=== PATIENT | male | born 1960 | race Caucasian/White ===

== ENCOUNTER 2016-12-03 10:24 | Inpatient (IN) | payer OTHER ==
[2016-12-03] VITALS (14 sets, daily range): BP systolic 109–130; BP diastolic 63–73
[~2016-12-03] VITALS: Ht 170.2 cm; Wt 66.1 kg
[2016-12-03 08:43] LABS: FASTING STATUS NONFASTING
[2016-12-03 09:41] LABS: EOSINOPHIL (%) 1.2 % (0-5); EOSINOPHIL COUNT 0.1 K/uL (0-0.3); IMMATURE GRANULOCYTE (%) 1.5 % (0.0-0.7); IMMATURE GRANULOCYTE COUNT 0.1 K/uL; INSTRUMENT ABS NEUTROPHIL CT 3.9 K/uL; MCH 17.2 PG (29.0-34.0); MCHC 25.7 G/DL (30.0-36.0); MEAN PLAT.VOLUME 8.6 uM^3 (9.0-12.4); MONOCYTE (%) 9.2 % (3-12); MONOCYTE COUNT 0.6 K/uL (0-0.8); NEUTROPHIL (%) 58.3 % (45-76); NEUTROPHIL COUNT 3.9 K/uL (1.8-6.4); PLATELET COUNT 681 K/uL (156-360); RBC DIS.WIDTH-CV 21.2 % (11.8-14.6); RED BLOOD COUNT 2.09 M/uL (4.00-5.50); WHITE BLOOD COUNT 6.7 K/uL (4.1-10.2)
[2016-12-03 09:44] LABS: ALKALINE PHOSPHATASE 74 IU/L (3-129); ANION GAP 12 MEQ/L (2-14); CHLORIDE 103 MEQ/L (99-109); GFR ESTIMATE (CALCULATED) 48 mL/min/; GLUCOSE 101 mg/dL (70-99); POTASSIUM 4.4 MEQ/L (3.7-5.4); SAMPLE HEMOLYSIS CHECK 0; SAMPLE ICTERIC CHECK 0; SAMPLE LIPEMIA CHECK 0; SODIUM 135 MEQ/L (136-147); TOTAL BILIRUBIN 0.5 MG/DL (0.0-1.0); UREA NITROGEN (BUN) 17 mg/dL (9-23)
[2016-12-04] VITALS (14 sets, daily range): BP systolic 105–124; BP diastolic 55–74
[2016-12-04 06:13] LABS: HEMATOCRIT 20.5 % (38.0-50.0); MCHC 29.3 G/DL (30.0-36.0); MEAN PLAT.VOLUME 8.8 uM^3 (9.0-12.4); NRBC (%) 0.5 /100 WBC (0-0); RBC DIS.WIDTH-CV 21.6 % (11.8-14.6); RBC DIS.WIDTH-SD 60.1 % (39-53); WHITE BLOOD COUNT 6.1 K/uL (4.1-10.2)
[2016-12-04 06:17] LABS: MCH 22.4 PG (29.0-34.0); MCV 76.5 FL (86-99); PLATELET COUNT 475 K/uL (156-360); RED BLOOD COUNT 2.68 M/uL (4.00-5.50)
[2016-12-04 06:43] LABS: ANION GAP 9 MEQ/L (2-14); CHLORIDE 104 MEQ/L (99-109); GFR ESTIMATE (CALCULATED) 45 mL/min/; GLOBULINS 6.5 G/DL (2.3-3.5); GLUCOSE 88 mg/dL (70-99); SAMPLE HEMOLYSIS CHECK 0; SAMPLE ICTERIC CHECK 0; SAMPLE LIPEMIA CHECK 0; SODIUM 134 MEQ/L (136-147); UREA NITROGEN (BUN) 16 mg/dL (9-23)
[2016-12-04 14:06] LABS: ALBUMIN 3.41 G/DL (3.6-4.9); ALBUMIN PERCENT 36.7 %; ALPHA-1 GLOBULIN 0.35 G/DL (0.15-0.40); ALPHA-1 PERCENT 3.8 %; ALPHA-2 GLOBULIN 1.02 G/DL (0.45-0.85); BETA PERCENT 6.8 %; GAMMA PERCENT 41.7 %
[2016-12-04 16:35] LABS: HEMATOCRIT 27.5 % (38.0-50.0); MCH 24.1 PG (29.0-34.0); MCHC 30.5 G/DL (30.0-36.0); MCV 78.8 FL (86-99); MEAN PLAT.VOLUME 8.6 uM^3 (9.0-12.4); NRBC (%) 0.3 /100 WBC (0-0); PLATELET COUNT 470 K/uL (156-360); RBC DIS.WIDTH-CV 22.2 % (11.8-14.6); RBC DIS.WIDTH-SD 63.5 % (39-53); RED BLOOD COUNT 3.49 M/uL (4.00-5.50); WHITE BLOOD COUNT 6.4 K/uL (4.1-10.2)
[2016-12-04 16:36] LABS: HEMATOCRIT 27.5 % (38.0-50.0); MCV 78.8 FL (86-99)
[2016-12-04 16:53] LABS: INTER. NORMALIZED RATIO 1.2; PROTHROMBIN TIME 11.8 (9.2-11.2)
[2016-12-04 21:52] LABS: HEMATOCRIT 26.7 % (38.0-50.0); MCH 24.2 PG (29.0-34.0); MCHC 31.1 G/DL (30.0-36.0); MCV 77.8 FL (86-99); MEAN PLAT.VOLUME 8.7 uM^3 (9.0-12.4); PLATELET COUNT 469 K/uL (156-360); RBC DIS.WIDTH-CV 22.4 % (11.8-14.6); RBC DIS.WIDTH-SD 63.3 % (39-53); RED BLOOD COUNT 3.43 M/uL (4.00-5.50); WHITE BLOOD COUNT 6.1 K/uL (4.1-10.2)
[2016-12-05] VITALS (13 sets, daily range): BP systolic 98–142; BP diastolic 48–77
[2016-12-05 07:11] LABS: HEMATOCRIT 26.2 % (38.0-50.0); MCH 23.8 PG (29.0-34.0); MCHC 30.2 G/DL (30.0-36.0); MCV 78.9 FL (86-99); PLATELET COUNT 502 K/uL (156-360); RBC DIS.WIDTH-CV 22.3 % (11.8-14.6); RBC DIS.WIDTH-SD 64.2 % (39-53); RED BLOOD COUNT 3.32 M/uL (4.00-5.50); WHITE BLOOD COUNT 6.3 K/uL (4.1-10.2)
[2016-12-05 07:51] LABS: IMMUNOGLOBULIN A 32 MG/DL (40-350); IMMUNOGLOBULIN G 635 MG/DL (650-1600); IMMUNOGLOBULIN M 4786 MG/DL (50-300)
[2016-12-05 13:59] LABS: HEMATOCRIT 25.8 % (38.0-50.0); MCV 79.6 FL (86-99)
[2016-12-05 20:00] LABS: HEMATOCRIT 28.4 % (38.0-50.0); MCV 81.1 FL (86-99)
[2016-12-06 04:00] VITALS: BP 121/71
[2016-12-06 06:54] LABS: MCH 24.5 PG (29.0-34.0); MCV 81.6 FL (86-99); MEAN PLAT.VOLUME 8.7 uM^3 (9.0-12.4); PLATELET COUNT 451 K/uL (156-360); RBC DIS.WIDTH-CV 21.8 % (11.8-14.6); RBC DIS.WIDTH-SD 64.8 % (39-53); WHITE BLOOD COUNT 6.9 K/uL (4.1-10.2)
[2016-12-06 07:29] LABS: ANION GAP 12 MEQ/L (2-14); CHLORIDE 104 MEQ/L (99-109); POTASSIUM 4.2 MEQ/L (3.7-5.4); SAMPLE HEMOLYSIS CHECK 0; SAMPLE ICTERIC CHECK 0; SAMPLE LIPEMIA CHECK 0; SODIUM 136 MEQ/L (136-147)
[2016-12-06 07:34] LABS: GFR ESTIMATE (CALCULATED) 51 mL/min/; GLUCOSE 95 mg/dL (70-99); UREA NITROGEN (BUN) 15 mg/dL (9-23)
[2016-12-06 08:49] VITALS: BP 146/60
[2016-12-06] MEDS ORDERED: ZOFRAN4 MG PO (11:52)
[2016-12-06] MEDS ORDERED: PROTONIX40 MG PO (11:53)
[2016-12-06 12:37] VITALS: BP 139/74
== END 2016-12-06 12:45 | disposition home or self-care (01) | DRG 375 ==
LOC: EME 10:24 → 4EAST 11:43 → EDOF 11:43 → 4EAST 14:38 → 5SOUTH 12-04 11:14 → 4EAST 12-04 11:14 → 5SOUTH 12-04 20:28 → 4EAST 12-04 20:29 → 5SOUTH 12-04 22:31
PROVIDERS: Internal Medicine; Physician Assistant; Specialist
PROC: 30233N1 Transfusion of Nonautologous Red Blood Cells into Peripheral Vein, Percutaneous Approach (ICD-10-PCS; principal; 2016-12-03)
DX: C20 Malignant neoplasm of rectum (principal); D50.0 Iron deficiency anemia secondary to blood loss (chronic); K62.5 Hemorrhage of anus and rectum; C88.0 Waldenstrom macroglobulinemia; C77.1 Secondary and unspecified malignant neoplasm of intrathoracic lymph nodes; C77.3 Secondary and unspecified malignant neoplasm of axilla and upper limb lymph nodes; C77.2 Secondary and unspecified malignant neoplasm of intra-abdominal lymph nodes; N17.9 Acute kidney failure, unspecified; D47.3 Essential (hemorrhagic) thrombocythemia; E86.1 Hypovolemia
CPT/HCPCS: 36415; 71250; 74176; 77012; 80048; 80053; 82232; 82378; 82784 90; 83883 90; 84165; 85014; 85018; 85025; 85027; 85610; 85730; 85810 90; 86900; 86901; 86920; 99281; 99285; C9113; G0378; J1650; J1940; J7030; P9016

== ENCOUNTER → 2016-12-10 | Outpatient (CLI) | payer OTHER ==
[~2016-12-10] MED LIST: PROTONIX40 MG PO; ZOFRAN4 MG PO
[2016-12-10 10:59] LABS: HEMATOCRIT 30.6 % (38.0-50.0); MCH 24.7 PG (29.0-34.0); MCHC 29.7 G/DL (30.0-36.0); MCV 82.9 FL (86-99); MEAN PLAT.VOLUME 8.3 uM^3 (9.0-12.4); PLATELET COUNT 363 K/uL (156-360); RBC DIS.WIDTH-CV 22.7 % (11.8-14.6); RBC DIS.WIDTH-SD 69.1 % (39-53); RED BLOOD COUNT 3.69 M/uL (4.00-5.50); WHITE BLOOD COUNT 5.2 K/uL (4.1-10.2)
[2016-12-10 12:03] LABS: ABS NEUTROPHIL COUNT 3.5; ANISOCYTOSIS 1+; EOSINOPHIL ABS CT 0; EOSINOPHILS 0.9 % (0-5.0); HYPOCHROMASIA 1+; INSTRUMENT ABS NEUTROPHIL CT 3.3 K/uL; LYMPHOCYTES 26.1 % (15.0-45.0); MACROCYTES 1+; PLAT.SUFFICIENCY ADEQUATE; POLYCHROMASIA 3+; SEG.NEUTROPHILS 67.8 % (46.0-76.0)
[2016-12-12 15:41] LABS: Flow Number of Markers 24 (()); Flow Spec Viability 96 % (()); Flow Specimen Type BONE MARROW (())
== END | disposition home or self-care (01) ==
LOC: OPR 09:59 → EDSTATUS 10:00
PROVIDERS: Internal Medicine
DX: C88.0 Waldenstrom macroglobulinemia (principal); C20 Malignant neoplasm of rectum; R59.1 Generalized enlarged lymph nodes; Z80.42 Family history of malignant neoplasm of prostate
CPT/HCPCS: 77012; 81479 90; 85007; 85025; 85999; 88184 90; 88185 90; 88189 90; J3010

== ENCOUNTER 2018-01-05 15:49 | Inpatient (IN) | payer OTHER ==
[~2018-01-05] VITALS: Ht 170.2 cm; Wt 68.1 kg
[~2018-01-05 15:49] MED LIST changes: +DECADRON4 MG PO
[2018-01-05 16:30] LABS: HEMATOCRIT 22.9 % (38.0-50.0); HEMOGLOBIN 7.4 G/DL (12.5-16.6); MCHC 32.3 G/DL (30.0-36.0); MCV 83.6 FL (86-99); PLATELET COUNT 633 K/uL (156-360); RBC DIS.WIDTH-CV 17.7 % (11.8-14.6); RBC DIS.WIDTH-SD 53.8 % (39-53); RED BLOOD COUNT 2.74 M/uL (4.00-5.50); WHITE BLOOD COUNT 6.8 K/uL (4.1-10.2)
[2018-01-05 16:39] LABS: CHLORIDE 100 mEq/L (99-109); POTASSIUM 3.9 mEq/L (3.7-5.4); SODIUM 130 mEq/L (136-147)
[2018-01-05 16:41] LABS: GLUCOSE 81 mg/dL (70-99)
[2018-01-05 16:45] LABS: CREATININE 2.7 mg/dL (0.6-1.3); GFR ESTIMATE (CALCULATED) 26 mL/min/ (58.99-99999)
[2018-01-05 16:46] LABS: UREA NITROGEN (BUN) 23 mg/dL (9-23)
[2018-01-05 18:03] LABS: ALBUMIN 3.4 g/dL (3.2-4.8)
[2018-01-05 18:06] LABS: TOTAL PROTEIN 9.8 g/dL (6.4-8.3)
[2018-01-05 18:08] LABS: TOTAL BILIRUBIN 0.6 mg/dL (0.0-1.0)
[2018-01-05 18:09] LABS: ALKALINE PHOSPHATASE 66 IU/L (3-129)
[2018-01-05 18:11] LABS: AST (GOT) 18 IU/L (2-34); DIRECT BILIRUBIN 0.4 mg/dL (0.0-0.3)
[2018-01-05 18:12] LABS: ALT (GPT) 12 IU/L (3-49)
[2018-01-05 18:32] VITALS: BP 137/85
[2018-01-05 18:57] VITALS: BP 139/84
[2018-01-05 20:25] VITALS: BP 159/86
[2018-01-05 21:34] VITALS: BP 137/77
[2018-01-05 21:52] VITALS: BP 135/80
[2018-01-05] MEDS ORDERED: ADVIL,NUPRIN,M200 MG PO (21:52)
[2018-01-05] MEDS ORDERED: TYLENOL REGULA325 MG PO (21:53)
[2018-01-05 22:35] LABS: IMMUNOGLOBULIN G 567 MG/DL (650-1600); IMMUNOGLOBULIN M 4249 MG/DL (50-300)
[2018-01-05 23:14] VITALS: BP 129/79
[2018-01-06 00:33] VITALS: BP 138/80
[2018-01-06 05:46] LABS: HEMATOCRIT 25.8 % (38.0-50.0); HEMOGLOBIN 8.2 G/DL (12.5-16.6); MCV 84.9 FL (86-99)
[2018-01-06 06:15] LABS: CHLORIDE 103 MEQ/L (99-109); CREATININE 2.5 MG/DL (0.6-1.3); GFR ESTIMATE (CALCULATED) 28 mL/min/ (58.99-99999); GLUCOSE 91 mg/dL (70-99); SODIUM 133 MEQ/L (136-147); UREA NITROGEN (BUN) 25 mg/dL (9-23)
[2018-01-06 06:53] VITALS: BP 143/74
[2018-01-06 11:48] LABS: HEMATOCRIT 25.6 % (38.0-50.0); MCV 84.8 FL (86-99)
[2018-01-06 12:40] VITALS: BP 122/66
[2018-01-06 15:02] VITALS: BP 130/76
[2018-01-06 18:11] LABS: HEMATOCRIT 25.2 % (38.0-50.0); MCV 85.4 FL (86-99)
[2018-01-06 19:28] VITALS: BP 134/78
[2018-01-06 23:26] VITALS: BP 138/71
[2018-01-07 00:51] LABS: HEMATOCRIT 23.8 % (38.0-50.0); HEMOGLOBIN 7.6 G/DL (12.5-16.6); MCV 84.7 FL (86-99)
[2018-01-07 00:57] LABS: INTER. NORMALIZED RATIO 1.1
[2018-01-07 00:59] LABS: PTT 31.7 SEC (25-37)
[2018-01-07 03:00] VITALS: BP 127/71
[2018-01-07 03:21] VITALS: BP 132/73
[2018-01-07 04:24] VITALS: BP 143/74
[2018-01-07 05:20] VITALS: BP 148/78
[2018-01-07 06:15] LABS: BASOPHIL (%) 0.7 % (0-1); EOSINOPHIL (%) 3.2 % (0-5); EOSINOPHIL COUNT 0.1 K/uL (0-0.3); HEMATOCRIT 26.3 % (38.0-50.0); HEMOGLOBIN 8.4 G/DL (12.5-16.6); IMMATURE GRANULOCYTE (%) 0.2 % (0.0-0.7); LYMPHOCYTE (%) 3.7 % (15-42); LYMPHOCYTE COUNT 0.2 K/uL (1.0-2.8); MCH 27.1 PG (29.0-34.0); MCHC 31.9 G/DL (30.0-36.0); MCV 84.8 FL (86-99); MONOCYTE (%) 9.2 % (3-12); MONOCYTE COUNT 0.4 K/uL (0-0.8); NEUTROPHIL COUNT 3.6 K/uL (1.8-6.4); PLATELET COUNT 490 K/uL (156-360); RBC DIS.WIDTH-CV 17.1 % (11.8-14.6); RBC DIS.WIDTH-SD 52.8 % (39-53); WHITE BLOOD COUNT 4.3 K/uL (4.1-10.2)
[2018-01-07 06:58] LABS: A/G RATIO 0.6 (1.1-1.8); ALBUMIN 2.7 G/DL (3.4-5.0); GLOBULINS 4.9 G/DL (2.3-3.5); TOTAL PROTEIN 7.6 G/DL (6.4-8.2)
[2018-01-07 07:14] VITALS: BP 157/75
[2018-01-07 11:07] LABS: PHOSPHORUS 3.3 mg/dL (2.5-4.9); URIC ACID 2.9 mg/dL (3.1-9.2)
[2018-01-07 14:02] LABS: APPEARANCE CLEAR ((CLEAR)); BILIRUBIN NEGATIVE; BLOOD SMALL; COLOR YELLOW ((YELLOW)); GLUCOSE (STRIP) 150; KETONES NEGATIVE; LEUKOCYTES NEGATIVE; NITRITE NEGATIVE; PROTEIN (STRIP) 30; SPECIFIC GRAVITY 1.009 (1.000-1.030); UROBILINOGEN 0.2 MG/DL (0.2-1.0)
[2018-01-07 14:02] LABS: ALBUMIN 3.82 G/DL (3.6-4.9); ALPHA-1 GLOBULIN 0.59 G/DL (0.15-0.40); ALPHA-2 GLOBULIN 0.62 G/DL (0.45-0.85); BETA-GLOBULIN 0.76 G/DL (0.65-1.15)
[2018-01-07 14:15] LABS: BACTERIA NONE SEEN /HPF; EPITHELIAL CELLS NONE SEEN /HPF; MUCUS NONE SEEN /LPF; RED BLOOD CELLS 0-5 /HPF (0-5); WHITE BLOOD CELLS 0-5 /HPF (0-5)
[2018-01-07 14:23] LABS: UR CREATININE CONCENTRATION 46.3 MG/DL
[2018-01-07 16:11] VITALS: BP 143/70
[2018-01-08 00:04] VITALS: BP 142/86
[2018-01-08 06:13] LABS: BASOPHIL (%) 0.9 % (0-1); BASOPHIL COUNT 0.1 K/uL (0-0.1); EOSINOPHIL (%) 2.9 % (0-5); EOSINOPHIL COUNT 0.2 K/uL (0-0.3); HEMATOCRIT 26.9 % (38.0-50.0); HEMOGLOBIN 8.5 G/DL (12.5-16.6); IMMATURE GRANULOCYTE (%) 0.5 % (0.0-0.7); LYMPHOCYTE (%) 3.8 % (15-42); LYMPHOCYTE COUNT 0.2 K/uL (1.0-2.8); MCH 27.1 PG (29.0-34.0); MCHC 31.6 G/DL (30.0-36.0); MCV 85.7 FL (86-99); MONOCYTE (%) 12.6 % (3-12); MONOCYTE COUNT 0.7 K/uL (0-0.8); NEUTROPHIL (%) 79.3 % (45-76); NEUTROPHIL COUNT 4.4 K/uL (1.8-6.4); NRBC (%) 0.5 /100 WBC (0-0); PLATELET COUNT 498 K/uL (156-360); RBC DIS.WIDTH-CV 17.5 % (11.8-14.6); RBC DIS.WIDTH-SD 54.9 % (39-53); RED BLOOD COUNT 3.14 M/uL (4.00-5.50); WHITE BLOOD COUNT 5.6 K/uL (4.1-10.2)
[2018-01-08 06:36] LABS: ALBUMIN 2.9 G/DL (3.2-4.8); CHLORIDE 102 MEQ/L (99-109); CHLORIDE 104 MEQ/L (99-109); MAGNESIUM 1.9 mg/dl (1.3-2.7); POTASSIUM 4.2 MEQ/L (3.7-5.4); SODIUM 134 MEQ/L (136-147); SODIUM 135 MEQ/L (136-147); TOTAL BILIRUBIN 0.9 MG/DL (0.0-1.0)
[2018-01-08 06:42] LABS: ALKALINE PHOSPHATASE 55 IU/L (3-129); ALT (GPT) 7 IU/L (3-49); AST (GOT) 10 IU/L (2-34); CREATININE 2.2 MG/DL (0.6-1.3); GFR ESTIMATE (CALCULATED) 33 mL/min/ (58.99-99999); GLUCOSE 100 mg/dL (70-99); GLUCOSE 101 mg/dL (70-99); PHOSPHORUS 2.8 mg/dL (2.5-4.9); TOTAL PROTEIN 8.1 G/DL (6.4-8.3); UREA NITROGEN (BUN) 19 mg/dL (9-23); URIC ACID 2.8 mg/dL (3.1-9.2)
[2018-01-08 07:25] VITALS: BP 160/75
[2018-01-08 15:25] VITALS: BP 138/84
[2018-01-08 23:44] VITALS: BP 149/84
[2018-01-09 06:15] LABS: BASOPHIL (%) 0.8 % (0-1); BASOPHIL COUNT 0.1 K/uL (0-0.1); EOSINOPHIL (%) 2.1 % (0-5); EOSINOPHIL COUNT 0.1 K/uL (0-0.3); HEMATOCRIT 24.2 % (38.0-50.0); HEMOGLOBIN 7.6 G/DL (12.5-16.6); IMMATURE GRANULOCYTE (%) 0.5 % (0.0-0.7); LYMPHOCYTE (%) 5.4 % (15-42); LYMPHOCYTE COUNT 0.3 K/uL (1.0-2.8); MCH 26.9 PG (29.0-34.0); MCHC 31.4 G/DL (30.0-36.0); MCV 85.5 FL (86-99); MONOCYTE (%) 10.7 % (3-12); MONOCYTE COUNT 0.7 K/uL (0-0.8); NEUTROPHIL (%) 80.5 % (45-76); NEUTROPHIL COUNT 4.9 K/uL (1.8-6.4); PLATELET COUNT 435 K/uL (156-360); RBC DIS.WIDTH-CV 17.2 % (11.8-14.6); RBC DIS.WIDTH-SD 54.3 % (39-53); RED BLOOD COUNT 2.83 M/uL (4.00-5.50); WHITE BLOOD COUNT 6.1 K/uL (4.1-10.2)
[2018-01-09 06:40] LABS: CHLORIDE 104 MEQ/L (99-109); CREATININE 2.1 MG/DL (0.6-1.3); GFR ESTIMATE (CALCULATED) 35 mL/min/ (58.99-99999); GLUCOSE 104 mg/dL (70-99); POTASSIUM 3.7 MEQ/L (3.7-5.4); SODIUM 133 MEQ/L (136-147); UREA NITROGEN (BUN) 16 mg/dL (9-23)
[2018-01-09 06:55] VITALS: BP 160/84
[2018-01-09] MEDS ORDERED: TRAMADOL HCL50 MG PO (11:47)
== END 2018-01-09 12:48 | disposition home or self-care (01) | DRG 375 ==
LOC: EME 15:49 → RME 15:49 → 5EAST 23:50 → EDOF 23:50 → ENRESERV 23:52 → 5EAST 01-06 00:33
PROVIDERS: Hospitalist; Internal Medicine Hematology & Oncology; Internal Medicine Nephrology; Physician Assistant
PROC: 30233N1 Transfusion of Nonautologous Red Blood Cells into Peripheral Vein, Percutaneous Approach (ICD-10-PCS; principal; 2018-01-05)
DX: C20 Malignant neoplasm of rectum (principal); D62 Acute posthemorrhagic anemia; K92.1 Melena; N17.9 Acute kidney failure, unspecified; T39.395A Adverse effect of other nonsteroidal anti-inflammatory drugs [NSAID], initial encounter; E86.1 Hypovolemia; E86.0 Dehydration; E87.1 Hypo-osmolality and hyponatremia; C88.0 Waldenstrom macroglobulinemia; C77.2 Secondary and unspecified malignant neoplasm of intra-abdominal lymph nodes; K59.09 Other constipation; D47.3 Essential (hemorrhagic) thrombocythemia; F10.20 Alcohol dependence, uncomplicated; D50.0 Iron deficiency anemia secondary to blood loss (chronic); I12.9 Hypertensive chronic kidney disease with stage 1 through stage 4 chronic kidney disease, or unspecified chronic kidney disease; N18.3 Chronic kidney disease, stage 3 (moderate); Z91.19 Patient's noncompliance with other medical treatment and regimen
CPT/HCPCS: 74176; 80048; 80053; 80076; 81003; 82570; 82784; 83735; 83883 90; 84100; 84156; 84165; 84550; 85014; 85018; 85025; 85027; 85610; 85730; 85810 90; 86334; 86850; 86900; 86901; 86920; 89190; 93005; 99281; 99285; J2060; J7030; J7042; P9016

== ENCOUNTER 2018-01-12 16:55 | Inpatient (IN) | payer OTHER ==
[~2018-01-12] VITALS: Ht 170.2 cm; Wt 65.0 kg
[~2018-01-12 16:55] MED LIST changes: +ADVIL,NUPRIN,M200 MG PO; +TRAMADOL HCL50 MG PO; +TYLENOL REGULA325 MG PO
[2018-01-12 17:30] VITALS: BP 106/86
[2018-01-12] MEDS ORDERED: TYLENOL EXTRA500 MG PO (17:38)
[2018-01-12 20:53] LABS: APPEARANCE CLEAR ((CLEAR)); BILIRUBIN NEGATIVE; BLOOD SMALL; COLOR YELLOW ((YELLOW)); GLUCOSE (STRIP) NEGATIVE; KETONES NEGATIVE; LEUKOCYTES NEGATIVE; NITRITE NEGATIVE; PROTEIN (STRIP) 30; UROBILINOGEN 0.2 MG/DL (0.2-1.0)
[2018-01-12 20:58] LABS: BACTERIA RARE /HPF; EPITHELIAL CELLS NONE SEEN /HPF; MUCUS TRACE /LPF; RED BLOOD CELLS 0-5 /HPF (0-5); UCUL ADDED? NO; WHITE BLOOD CELLS 0-5 /HPF (0-5)
[2018-01-12 23:45] VITALS: BP 156/83
[2018-01-13 06:38] LABS: HEMATOCRIT 26.3 % (38.0-50.0); HEMOGLOBIN 8.3 G/DL (12.5-16.6); MCH 26.9 PG (29.0-34.0); MCHC 31.6 G/DL (30.0-36.0); MCV 85.1 FL (86-99); PLATELET COUNT 455 K/uL (156-360); RBC DIS.WIDTH-CV 17.6 % (11.8-14.6); RBC DIS.WIDTH-SD 54.2 % (39-53); RED BLOOD COUNT 3.09 M/uL (4.00-5.50); WHITE BLOOD COUNT 4.7 K/uL (4.1-10.2)
[2018-01-13 06:55] VITALS: BP 162/85
[2018-01-13 07:15] LABS: IMMUNOGLOBULIN G 618 MG/DL (650-1600); IMMUNOGLOBULIN M 4679 MG/DL (50-300)
[2018-01-13 10:24] LABS: A/G RATIO 0.6 (1.1-1.8); ALKALINE PHOSPHATASE 59 IU/L (3-129); ALT (GPT) 7 IU/L (3-49); AST (GOT) 8 IU/L (2-34); CHLORIDE 99 MEQ/L (99-109); CREATININE 2.1 MG/DL (0.6-1.3); GFR ESTIMATE (CALCULATED) 35 mL/min/ (58.99-99999); GLOBULINS 5.3 G/DL (2.3-3.5); LACTATE DEHYDROGENASE 167 IU/L (20-246); POTASSIUM 3.6 MEQ/L (3.7-5.4); SODIUM 132 MEQ/L (136-147); TOTAL PROTEIN 8.3 G/DL (6.4-8.2); TOTAL PROTEIN 8.3 G/DL (6.4-8.3); UREA NITROGEN (BUN) 19 mg/dL (9-23)
[2018-01-13 10:31] LABS: GLUCOSE 99 mg/dL (70-99); TOTAL BILIRUBIN 0.9 MG/DL (0.0-1.0)
[2018-01-13 10:58] LABS: DIRECT BILIRUBIN 0.3 mg/dL (0.0-0.3)
[2018-01-13 15:30] VITALS: BP 153/86
[2018-01-13 23:48] VITALS: BP 148/83
[2018-01-14 07:25] LABS: BASOPHIL (%) 0.2 % (0-1); EOSINOPHIL (%) 0 % (0-5); HEMATOCRIT 25.8 % (38.0-50.0); HEMOGLOBIN 8.1 G/DL (12.5-16.6); IMMATURE GRANULOCYTE (%) 0.5 % (0.0-0.7); LYMPHOCYTE (%) 4.4 % (15-42); LYMPHOCYTE COUNT 0.2 K/uL (1.0-2.8); MCH 26.8 PG (29.0-34.0); MCHC 31.4 G/DL (30.0-36.0); MCV 85.4 FL (86-99); MONOCYTE COUNT 0.4 K/uL (0-0.8); NEUTROPHIL (%) 85.9 % (45-76); NEUTROPHIL COUNT 3.5 K/uL (1.8-6.4); PLATELET COUNT 479 K/uL (156-360); RBC DIS.WIDTH-CV 17.6 % (11.8-14.6); RBC DIS.WIDTH-SD 55.5 % (39-53); RED BLOOD COUNT 3.02 M/uL (4.00-5.50); WHITE BLOOD COUNT 4.1 K/uL (4.1-10.2)
[2018-01-14 08:06] VITALS: BP 135/77
[2018-01-14 08:30] LABS: CHLORIDE 103 MEQ/L (99-109); CREATININE 2.1 MG/DL (0.6-1.3); GFR ESTIMATE (CALCULATED) 35 mL/min/ (58.99-99999); SODIUM 134 MEQ/L (136-147); UREA NITROGEN (BUN) 21 mg/dL (9-23)
[2018-01-14 08:34] LABS: GLUCOSE 152 mg/dL (70-99); POTASSIUM 4.6 MEQ/L (3.7-5.4)
[2018-01-14 15:02] LABS: ALBUMIN 4.25 G/DL (3.6-4.9); ALPHA-1 GLOBULIN 0.57 G/DL (0.15-0.40); BETA-GLOBULIN 0.83 G/DL (0.65-1.15); GAMMA-GLOBULIN 1.74 G/DL (0.60-1.35)
[2018-01-14 15:54] VITALS: BP 132/75
[2018-01-14 16:24] LABS: CHLORIDE 102 MEQ/L (99-109); GFR ESTIMATE (CALCULATED) 37 mL/min/ (58.99-99999); GLUCOSE 186 mg/dL (70-99); POTASSIUM 4.6 MEQ/L (3.7-5.4); SODIUM 133 MEQ/L (136-147); UREA NITROGEN (BUN) 24 mg/dL (9-23)
[2018-01-15 00:12] VITALS: BP 154/84
[2018-01-15 06:13] LABS: BASOPHIL (%) 0.2 % (0-1); EOSINOPHIL (%) 0.2 % (0-5); HEMATOCRIT 24.6 % (38.0-50.0); HEMOGLOBIN 7.8 G/DL (12.5-16.6); IMMATURE GRANULOCYTE (%) 0.3 % (0.0-0.7); LYMPHOCYTE COUNT 0.3 K/uL (1.0-2.8); MCHC 31.7 G/DL (30.0-36.0); MCV 85.1 FL (86-99); MONOCYTE COUNT 0.5 K/uL (0-0.8); NEUTROPHIL (%) 86.3 % (45-76); NEUTROPHIL COUNT 5.5 K/uL (1.8-6.4); PLATELET COUNT 463 K/uL (156-360); RBC DIS.WIDTH-CV 17.9 % (11.8-14.6); RBC DIS.WIDTH-SD 54.9 % (39-53); RED BLOOD COUNT 2.89 M/uL (4.00-5.50); WHITE BLOOD COUNT 6.4 K/uL (4.1-10.2)
[2018-01-15 06:41] LABS: CHLORIDE 102 MEQ/L (99-109); CREATININE 2.1 MG/DL (0.6-1.3); GFR ESTIMATE (CALCULATED) 35 mL/min/ (58.99-99999); SODIUM 135 MEQ/L (136-147); UREA NITROGEN (BUN) 27 mg/dL (9-23)
[2018-01-15 06:42] LABS: GLUCOSE 87 mg/dL (70-99)
[2018-01-15 07:20] VITALS: BP 155/76
[2018-01-15] MEDS ORDERED: AMLODIPINE BESY10 MG PO (13:14)
[2018-01-15] MEDS ORDERED: OXYCODONE HCL5 MG PO (13:15)
== END 2018-01-15 15:51 | disposition home or self-care (01) | DRG 841 ==
LOC: 5EAST 16:55 → ENRESERV 17:09 → 5EAST 17:13
PROVIDERS: Hospitalist; Internal Medicine
DX: C88.0 Waldenstrom macroglobulinemia (principal); R27.0 Ataxia, unspecified; R20.2 Paresthesia of skin; C20 Malignant neoplasm of rectum; I12.9 Hypertensive chronic kidney disease with stage 1 through stage 4 chronic kidney disease, or unspecified chronic kidney disease; N18.3 Chronic kidney disease, stage 3 (moderate); D63.0 Anemia in neoplastic disease; F10.20 Alcohol dependence, uncomplicated; M54.9 Dorsalgia, unspecified; Z80.0 Family history of malignant neoplasm of digestive organs; Z92.3 Personal history of irradiation; Z92.21 Personal history of antineoplastic chemotherapy
CPT/HCPCS: 80048; 80048 91; 80053; 80076; 81003; 82784; 83615; 83883 90; 84165; 85025; 85027; 85810 90; 86334; 86850; 86900; 86901; J1100; J1644; J3411; J7030; J7050; J9041; J9070; Q0166

== ENCOUNTER 2018-01-22 11:32 | Inpatient (IN) | payer OTHER ==
[2018-01-22] VITALS (7 sets, daily range): BP systolic 110–144; BP diastolic 55–81
[~2018-01-22] VITALS: Ht 170.2 cm; Wt 64.3 kg
[~2018-01-22 11:32] MED LIST changes: +AMLODIPINE BESY10 MG PO; +OXYCODONE HCL5 MG PO; +TYLENOL EXTRA500 MG PO
[2018-01-22 12:40] LABS: URIC ACID 4.7 mg/dL (3.1-9.2)
[2018-01-22 14:31] LABS: APPEARANCE CLEAR ((CLEAR)); BILIRUBIN NEGATIVE; BLOOD SMALL; COLOR YELLOW ((YELLOW)); GLUCOSE (STRIP) NEGATIVE; KETONES NEGATIVE; LEUKOCYTES NEGATIVE; NITRITE NEGATIVE; PROTEIN (STRIP) 30; SPECIFIC GRAVITY 1.009 (1.000-1.030); UROBILINOGEN 0.2 MG/DL (0.2-1.0)
[2018-01-22 14:33] LABS: BACTERIA RARE /HPF; EPITHELIAL CELLS RARE /HPF; MUCUS TRACE /LPF; RED BLOOD CELLS 0-5 /HPF (0-5); UCUL ADDED? NO; WHITE BLOOD CELLS 0-5 /HPF (0-5)
[2018-01-22 15:33] LABS: ALBUMIN 3.5 g/dL (3.2-4.8); CHLORIDE 101 mEq/L (99-109); POTASSIUM 5.5 mEq/L (3.7-5.4); SODIUM 133 mEq/L (136-147)
[2018-01-22 15:36] LABS: GLUCOSE 94 mg/dL (70-99); TOTAL PROTEIN 9.7 g/dL (6.4-8.3)
[2018-01-22 15:38] LABS: TOTAL BILIRUBIN 0.7 mg/dL (0.0-1.0)
[2018-01-22 15:39] LABS: ALKALINE PHOSPHATASE 73 IU/L (3-129); CREATININE 5.7 mg/dL (0.6-1.3); GFR ESTIMATE (CALCULATED) 11 mL/min/ (58.99-99999)
[2018-01-22 15:40] LABS: UREA NITROGEN (BUN) 81 mg/dL (9-23)
[2018-01-22 15:41] LABS: AST (GOT) 14 IU/L (2-34)
[2018-01-22 15:42] LABS: ALT (GPT) 12 IU/L (3-49)
[2018-01-22 16:44] LABS: HEMATOCRIT 21.5 % (38.0-50.0); MCH 27.2 PG (29.0-34.0); MCHC 31.6 G/DL (30.0-36.0); PLATELET COUNT 388 K/uL (156-360); RBC DIS.WIDTH-CV 18.2 % (11.8-14.6); RBC DIS.WIDTH-SD 57.5 % (39-53); WHITE BLOOD COUNT 5.7 K/uL (4.1-10.2)
[2018-01-22 16:48] LABS: HEMOGLOBIN 6.8 G/DL (12.5-16.6)
[2018-01-22 16:56] LABS: A/G RATIO 0.6 (1.1-1.8); ALBUMIN 3.1 G/DL (3.4-5.0); TOTAL PROTEIN 8.1 G/DL (6.4-8.2)
[2018-01-22 20:23] LABS: HEMATOCRIT 21.9 % (38.0-50.0); MCV 86.6 FL (86-99)
[2018-01-22 20:26] LABS: HEMOGLOBIN 6.9 G/DL (12.5-16.6)
[2018-01-23] VITALS (7 sets, daily range): BP systolic 118–140; BP diastolic 57–75
[2018-01-23 05:20] LABS: ALBUMIN 2.8 g/dL (3.2-4.8); CHLORIDE 105 mEq/L (99-109); MAGNESIUM 2.1 mg/dL (1.3-2.7); POTASSIUM 4.5 mEq/L (3.7-5.4); SODIUM 135 mEq/L (136-147)
[2018-01-23 05:22] LABS: GLUCOSE 97 mg/dL (70-99)
[2018-01-23 05:26] LABS: ALKALINE PHOSPHATASE 67 IU/L (3-129); CREATININE 5.2 mg/dL (0.6-1.3); GFR ESTIMATE (CALCULATED) 12 mL/min/ (58.99-99999); HEMATOCRIT 26.1 % (38.0-50.0); HEMOGLOBIN 8.8 G/DL (12.5-16.6); MCV 84.5 FL (86-99)
[2018-01-23 05:27] LABS: UREA NITROGEN (BUN) 71 mg/dL (9-23)
[2018-01-23 05:28] LABS: AST (GOT) 12 IU/L (2-34)
[2018-01-23 05:29] LABS: ALT (GPT) 10 IU/L (3-49); TOTAL BILIRUBIN 1.4 mg/dL (0.0-1.0); TOTAL PROTEIN 7.6 g/dL (6.4-8.3)
[2018-01-23 06:37] LABS: BASOPHIL (%) 0.5 % (0-1); EOSINOPHIL (%) 0.3 % (0-5); HEMATOCRIT 25.9 % (38.0-50.0); HEMOGLOBIN 8.4 G/DL (12.5-16.6); IMMATURE GRANULOCYTE (%) 0.4 % (0.0-0.7); LYMPHOCYTE (%) 1.5 % (15-42); LYMPHOCYTE COUNT 0.1 K/uL (1.0-2.8); MCH 27.7 PG (29.0-34.0); MCHC 32.4 G/DL (30.0-36.0); MCV 85.5 FL (86-99); MONOCYTE (%) 2.8 % (3-12); MONOCYTE COUNT 0.2 K/uL (0-0.8); NEUTROPHIL (%) 94.5 % (45-76); NEUTROPHIL COUNT 7.1 K/uL (1.8-6.4); PLATELET COUNT 370 K/uL (156-360); RBC DIS.WIDTH-CV 17.8 % (11.8-14.6); RBC DIS.WIDTH-SD 54.7 % (39-53); WHITE BLOOD COUNT 7.5 K/uL (4.1-10.2)
[2018-01-23 06:48] LABS: IMMUNOGLOBULIN G 694 MG/DL (650-1600)
[2018-01-23 06:49] LABS: RED BLOOD COUNT 3.03 M/uL (4.00-5.50)
[2018-01-23 07:06] LABS: IMMUNOGLOBULIN M 946 MG/DL (50-300)
[2018-01-24 06:57] LABS: HEMATOCRIT 26.8 % (38.0-50.0); MCH 28.8 PG (29.0-34.0); MCHC 33.6 G/DL (30.0-36.0); MCV 85.6 FL (86-99); PLATELET COUNT 367 K/uL (156-360); RBC DIS.WIDTH-CV 17.3 % (11.8-14.6); RBC DIS.WIDTH-SD 53.9 % (39-53); RED BLOOD COUNT 3.13 M/uL (4.00-5.50); WHITE BLOOD COUNT 6.8 K/uL (4.1-10.2)
[2018-01-24 07:14] VITALS: BP 141/73
[2018-01-24 07:22] LABS: CREATININE 5.1 MG/DL (0.6-1.3); GFR ESTIMATE (CALCULATED) 12 mL/min/ (58.99-99999); GLUCOSE 106 mg/dL (70-99); SODIUM 137 MEQ/L (136-147); UREA NITROGEN (BUN) 63 mg/dL (9-23)
[2018-01-24 07:23] LABS: CHLORIDE 107 MEQ/L (99-109)
[2018-01-24 16:35] VITALS: BP 134/78
[2018-01-24 20:22] VITALS: BP 150/73
[2018-01-25 00:40] VITALS: BP 136/80
[2018-01-25 06:16] LABS: HEMATOCRIT 29.3 % (38.0-50.0); HEMOGLOBIN 9.2 G/DL (12.5-16.6); MCHC 31.4 G/DL (30.0-36.0); MCV 85.9 FL (86-99); PLATELET COUNT 434 K/uL (156-360); RBC DIS.WIDTH-CV 17.4 % (11.8-14.6); RBC DIS.WIDTH-SD 55.1 % (39-53); RED BLOOD COUNT 3.41 M/uL (4.00-5.50); WHITE BLOOD COUNT 5.9 K/uL (4.1-10.2)
[2018-01-25 06:41] LABS: CHLORIDE 102 MEQ/L (99-109); CREATININE 4.9 MG/DL (0.6-1.3); GFR ESTIMATE (CALCULATED) 13 mL/min/ (58.99-99999); GLUCOSE 108 mg/dL (70-99); POTASSIUM 4.8 MEQ/L (3.7-5.4); SODIUM 135 MEQ/L (136-147); UREA NITROGEN (BUN) 59 mg/dL (9-23)
[2018-01-25 08:23] VITALS: BP 127/71
[2018-01-25 15:30] VITALS: BP 147/74
[2018-01-25 22:28] VITALS: BP 95/54
[2018-01-25 23:09] VITALS: BP 142/74
[2018-01-26 05:55] LABS: HEMATOCRIT 27.6 % (38.0-50.0); HEMOGLOBIN 8.7 G/DL (12.5-16.6); MCH 27.1 PG (29.0-34.0); MCHC 31.5 G/DL (30.0-36.0); PLATELET COUNT 450 K/uL (156-360); RBC DIS.WIDTH-CV 17.2 % (11.8-14.6); RBC DIS.WIDTH-SD 54.6 % (39-53); RED BLOOD COUNT 3.21 M/uL (4.00-5.50); WHITE BLOOD COUNT 5.9 K/uL (4.1-10.2)
[2018-01-26 06:26] LABS: CHLORIDE 102 MEQ/L (99-109); CREATININE 5.1 MG/DL (0.6-1.3); GFR ESTIMATE (CALCULATED) 12 mL/min/ (58.99-99999); GLUCOSE 103 mg/dL (70-99); POTASSIUM 4.4 MEQ/L (3.7-5.4); SODIUM 136 MEQ/L (136-147); UREA NITROGEN (BUN) 55 mg/dL (9-23)
[2018-01-26 07:38] VITALS: BP 133/81
[2018-01-26 11:08] LABS: ALBUMIN 4.26 G/DL (3.6-4.9); ALPHA-1 GLOBULIN 0.61 G/DL (0.15-0.40); ALPHA-2 GLOBULIN 0.99 G/DL (0.45-0.85); BETA-GLOBULIN 0.83 G/DL (0.65-1.15); GAMMA-GLOBULIN 1.41 G/DL (0.60-1.35)
[2018-01-26 16:21] VITALS: BP 131/78
[2018-01-26 16:49] VITALS: BP 130/76
[2018-01-26 17:11] VITALS: BP 130/76
[2018-01-26 23:32] VITALS: BP 123/62
[2018-01-27 06:24] LABS: BASOPHIL (%) 0 % (0-1); EOSINOPHIL (%) 0 % (0-5); HEMATOCRIT 25.2 % (38.0-50.0); HEMOGLOBIN 8.4 G/DL (12.5-16.6); IMMATURE GRANULOCYTE (%) 0.7 % (0.0-0.7); LYMPHOCYTE (%) 3.7 % (15-42); LYMPHOCYTE COUNT 0.2 K/uL (1.0-2.8); MCH 28.6 PG (29.0-34.0); MCHC 33.3 G/DL (30.0-36.0); MCV 85.7 FL (86-99); MONOCYTE (%) 4.2 % (3-12); MONOCYTE COUNT 0.2 K/uL (0-0.8); NEUTROPHIL (%) 91.4 % (45-76); NEUTROPHIL COUNT 4.2 K/uL (1.8-6.4); PLATELET COUNT 402 K/uL (156-360); RBC DIS.WIDTH-CV 17.2 % (11.8-14.6); RBC DIS.WIDTH-SD 53.9 % (39-53); RED BLOOD COUNT 2.94 M/uL (4.00-5.50); WHITE BLOOD COUNT 4.6 K/uL (4.1-10.2)
[2018-01-27 06:47] LABS: CHLORIDE 103 MEQ/L (99-109); CREATININE 4.5 MG/DL (0.6-1.3); GFR ESTIMATE (CALCULATED) 14 mL/min/ (58.99-99999); GLUCOSE 145 mg/dL (70-99); POTASSIUM 5.1 MEQ/L (3.7-5.4); SODIUM 136 MEQ/L (136-147); UREA NITROGEN (BUN) 63 mg/dL (9-23)
[2018-01-27 07:09] VITALS: BP 136/84
[2018-01-27 16:39] VITALS: BP 127/72
[2018-01-27 23:42] VITALS: BP 131/60
[2018-01-28 06:54] LABS: BASOPHIL (%) 0.6 % (0-1); EOSINOPHIL (%) 1.4 % (0-5); EOSINOPHIL COUNT 0.1 K/uL (0-0.3); HEMATOCRIT 26.1 % (38.0-50.0); HEMOGLOBIN 8.5 G/DL (12.5-16.6); IMMATURE GRANULOCYTE (%) 0.4 % (0.0-0.7); LYMPHOCYTE (%) 4.1 % (15-42); LYMPHOCYTE COUNT 0.2 K/uL (1.0-2.8); MCH 27.8 PG (29.0-34.0); MCHC 32.6 G/DL (30.0-36.0); MCV 85.3 FL (86-99); MONOCYTE (%) 6.4 % (3-12); MONOCYTE COUNT 0.3 K/uL (0-0.8); NEUTROPHIL (%) 87.1 % (45-76); NEUTROPHIL COUNT 4.5 K/uL (1.8-6.4); PLATELET COUNT 422 K/uL (156-360); RBC DIS.WIDTH-CV 17.3 % (11.8-14.6); RBC DIS.WIDTH-SD 54.3 % (39-53); RED BLOOD COUNT 3.06 M/uL (4.00-5.50); WHITE BLOOD COUNT 5.1 K/uL (4.1-10.2)
[2018-01-28 07:23] VITALS: BP 145/80
[2018-01-28 07:29] LABS: CHLORIDE 103 MEQ/L (99-109); CREATININE 4.2 MG/DL (0.6-1.3); GFR ESTIMATE (CALCULATED) 16 mL/min/ (58.99-99999); SODIUM 137 MEQ/L (136-147); UREA NITROGEN (BUN) 65 mg/dL (9-23)
[2018-01-28 07:32] LABS: GLUCOSE 101 mg/dL (70-99); PHOSPHORUS 4.4 mg/dL (2.5-4.9)
[2018-01-28 16:23] VITALS: BP 136/77
[2018-01-28 23:41] VITALS: BP 142/74
[2018-01-29 09:05] VITALS: BP 139/82
[2018-01-29 11:19] LABS: CHLORIDE 100 MEQ/L (99-109); CREATININE 4.1 MG/DL (0.6-1.3); GFR ESTIMATE (CALCULATED) 16 mL/min/ (58.99-99999); POTASSIUM 4.2 MEQ/L (3.7-5.4); SODIUM 136 MEQ/L (136-147); UREA NITROGEN (BUN) 63 mg/dL (9-23)
[2018-01-29 11:20] LABS: GLUCOSE 167 mg/dL (70-99)
[2018-01-29] MEDS ORDERED: OXYCODONE HCL5 MG PO (12:36)
== END 2018-01-29 16:08 | disposition home health service (06) | DRG 683 ==
LOC: EME 11:32 → EDOF 12:51 → 5EAST 12:51 → ENRESERV 12:57 → CANRESERV 13:31 → ENRESERV 13:33 → 5EAST 14:07
PROVIDERS: Emergency Medicine; Hospitalist; Internal Medicine; Internal Medicine Nephrology; Physician Assistant Medical
PROC: 30233N1 Transfusion of Nonautologous Red Blood Cells into Peripheral Vein, Percutaneous Approach (ICD-10-PCS; principal; 2018-01-22)
PROC: 3E03305 Introduction of Other Antineoplastic into Peripheral Vein, Percutaneous Approach (ICD-10-PCS; 2018-01-26)
DX: N17.0 Acute kidney failure with tubular necrosis (principal); E87.2 Acidosis; E87.1 Hypo-osmolality and hyponatremia; D62 Acute posthemorrhagic anemia; C88.0 Waldenstrom macroglobulinemia; N13.8 Other obstructive and reflux uropathy; E86.0 Dehydration; I12.9 Hypertensive chronic kidney disease with stage 1 through stage 4 chronic kidney disease, or unspecified chronic kidney disease; N18.3 Chronic kidney disease, stage 3 (moderate); C20 Malignant neoplasm of rectum; K62.5 Hemorrhage of anus and rectum; R33.9 Retention of urine, unspecified; R26.9 Unspecified abnormalities of gait and mobility; G89.29 Other chronic pain; M54.5 Low back pain; Z85.72 Personal history of non-Hodgkin lymphomas; Z92.21 Personal history of antineoplastic chemotherapy; Z92.3 Personal history of irradiation
CPT/HCPCS: 36415; 70480; 72141; 72146; 72148; 76770; 80048; 80053; 81003; 82784; 83735; 83883 90; 84100; 84132 91; 84165; 84550; 85014; 85018; 85025; 85027; 86850; 86900; 86901; 86920; 99281; 99284; J1100; J1644; J2405; J7030; J7050; J7120; J9041; J9070; P9016